=== PATIENT | male | born 2000 | race Caucasian/White ===

== ENCOUNTER 2021-12-18 07:45 | Emergency (ER) | payer OTHER ==
[~2021-12-18] VITALS: Ht 170.2 cm; Wt 54.5 kg
[2021-12-18] MEDS ORDERED: pantoprazole 40 MG vial IV SCH (08:10)
[2021-12-18] MEDS ORDERED: normal saline 1000ML IV soln IVB ONE (08:10)
[2021-12-18] MEDS ORDERED: pantoprazole 40 MG vial IV ONE (08:10)
[2021-12-18] MEDS ORDERED: pantoprazole 40MG/NS 100ML BAG 100 ML IV ONE (08:55)
[2021-12-18 09:13] LABS: EOSINOPHILS % (AUTO) 0.2 % (0-6); NEUTROPHILS % (AUTO) 40.7 % (42-75); RED BLOOD COUNT 4.74 X10'6 (4.70-6.10)
[2021-12-18 09:16] LABS: BASOPHILS % (AUTO) 0.2 % (0-1); HEMATOCRIT 40.9 % (42.0-52.0); HEMOGLOBIN 14.4 g/dl (14.0-17.9); LYMPHOCYTES # (AUTO) 2.8 X10'3 (1.1-4.8); LYMPHOCYTES % (AUTO) 44.7 % (21-51); MEAN CORPUSCULAR HEMOGLOBIN 30.4 PG (27.0-31.0); MEAN CORPUSCULAR HGB CONC 35.3 g/dL (33.0-36.5); MEAN CORPUSCULAR VOLUME 86.3 FL (78-98); MEAN PLATELET VOLUME 9.5 FL (7.4-10.4); MONOCYTES # (AUTO) 0.9 X10'3 (0-0.9); MONOCYTES % (AUTO) 14.2 % (2-12); NEUTROPHILS # (AUTO) 2.5 X10'3 (1.8-7.7); PLATELET COUNT 139 X10'3 (140-440); RED CELL DISTRIBUTION WIDTH 12.8 % (11.5-14.5); WHITE BLOOD COUNT 6.2 X10'3 (4.5-11.0)
[2021-12-18 09:26] LABS: ALANINE AMINOTRANSFERASE 144 U/L (12-78); ALBUMIN 4.1 G/DL (3.4-5.0); ALBUMIN/GLOBULIN RATIO 1.1 (1.1-1.5); ALKALINE PHOSPHATASE 132 IU/L (46-116); ANION GAP 13 (8-16); ASPARTATE AMINO TRANSFERASE 112 U/L (10-37); BILIRUBIN,TOTAL 0.9 MG/DL (0.1-1.0); BLOOD UREA NITROGEN 7 MG/DL (7-18); BUN/CREATININE RATIO 7.4 (5.4-32.0); CALCIUM 8.9 MG/DL (8.5-10.1); CHLORIDE 104 MMOL/L (99-107); CREATININE 0.94 MG/DL (0.60-1.10); GLUCOSE 107 MG/DL (70-104); LIPASE 58 U/L (73-393); POTASSIUM 3.5 MMOL/L (3.5-5.1); SODIUM 141 MMOL/L (135-145); eGFR > 90 ML/MIN
[2021-12-18] MEDS ORDERED: PANT-47 PO (09:59)
[2021-12-18 10:11] VITALS: BP 122/77
[2021-12-18] MEDS ORDERED: proCHLORperazine 10mg tablet PO ONE (10:55)
== END 2021-12-18 10:19 | disposition home or self-care (01) ==
LOC: ER 07:46
DX: R11.2 Nausea with vomiting, unspecified (principal); R10.9 Unspecified abdominal pain
CPT/HCPCS: 36415; 80053; 83690; 85025; 96361; 96374; 99283; C9113; J7030; Q0164